=== PATIENT | female | born 1950 | race Caucasian/White ===

== ENCOUNTER 2020-10-16 12:29 | Observation (INO) ==
[2020-10-16] MEDS ORDERED: NS 0.9% 1000 ml BAG 1,000 ML IV ONE (12:40)
[2020-10-16 12:51] LABS: ABS Eosinophils 0.1 10^3/ul (0-0.6); ABS Lymphocytes 1.6 10^3/ul (1.0-4.8); ABS Monocytes 0.5 10^3/ul (0-0.8); ABS Neutrophils 3.2 10^3/ul (1.5-7.7); Eosinophil % 2.5 %; Hematocrit 41 % (35-47); Hemoglobin 13.9 g/dL (12.0-16.0); Lymphocyte % 28.3 %; Mean Corpuscular HGB Conc 34 g/dL (31-36); Mean Corpuscular Hemoglobin 30 pg (27-31); Mean Corpuscular Volume 89 fL (80-97); Mean Platelet Volume 7.8 fL (7.4-10.4); Nucleated Red Blood Cells % 0.1; Platelet Count 267 10^3/uL (150-450); Red Blood Count 4.58 10^6 /uL (3.70-4.87); Red Cell Distribution Width 13 % (10-15); White Blood Count 5.5 10^3/uL (3.5-10.8)
[2020-10-16 13:06] LABS: ALT 23 U/L (7-52); AST 22 U/L (13-39); Activated Partial Thrombo Time 30.1 seconds (26.0-38.0); Albumin/Globulin Ratio 1.6 (1-3); Alkaline Phosphatase 68 U/L (34-104); Anion Gap 6 mmol/L (2-11); BUN/Creatinine Ratio 16.5 (8-20); Blood Urea Nitrogen 14 mg/dL (6-24); CO2 Carbon Dioxide 28 mmol/L (22-32); Calcium 9.3 mg/dL (8.6-10.3); Chloride 106 mmol/L (101-111); Cholesterol 194 mg/dL; EGFR African American 80.5 (>60); EGFR Non-African American 66.5 (>60); Globulin 2.5 g/dL (2-4); Glucose 139 mg/dL (70-100); HDL Cholesterol 57.5 mg/dL; INR 1.09 (0.82-1.09); LDL Cholesterol 102 mg/dL; Potassium 3.8 mmol/L (3.5-5.0); Sodium 140 mmol/L (135-145); Total Protein 6.5 g/dL (6.4-8.9); Triglycerides 174 mg/dL
[2020-10-16] MEDS ORDERED: LORazepam 2 mg VIAL 1 ml IV PUSH ONE (15:39)
[2020-10-16] MEDS ORDERED: Lorazepam PYXIS KEY PRN (15:39)
[2020-10-16] MEDS ORDERED: Lorazepam PYXIS KEY ONE (15:41)
[2020-10-16] MEDS: Fluticasone NASAL SPRAY 50MCG 16 gm SPRAY BTL INTRANASAL SCH (20:13)
[2020-10-17 06:57] LABS: ABS Eosinophils 0.1 10^3/ul (0-0.6); ABS Lymphocytes 1.6 10^3/ul (1.0-4.8); ABS Monocytes 0.6 10^3/ul (0-0.8); ABS Neutrophils 2.4 10^3/ul (1.5-7.7); Eosinophil % 2.8 %; Hematocrit 41 % (35-47); Hemoglobin 13.8 g/dL (12.0-16.0); Lymphocyte % 33.6 %; Mean Corpuscular HGB Conc 34 g/dL (31-36); Mean Corpuscular Hemoglobin 30 pg (27-31); Mean Corpuscular Volume 89 fL (80-97); Mean Platelet Volume 7.9 fL (7.4-10.4); Nucleated Red Blood Cells % 0.1; Platelet Count 236 10^3/uL (150-450); Red Blood Count 4.62 10^6 /uL (3.70-4.87); Red Cell Distribution Width 13 % (10-15); White Blood Count 4.6 10^3/uL (3.5-10.8)
[2020-10-17 07:11] LABS: BUN/Creatinine Ratio 14.5 (8-20); EGFR African American 102.4 (>60); EGFR Non-African American 84.6 (>60); Potassium 3.9 mmol/L (3.5-5.0)
[2020-10-17] MEDS ORDERED: Cholecalciferol (VIT D3) 1,000 unit TAB PO SCH (09:00)
[2020-10-17] MEDS ORDERED: Aspirin EC 81 mg TAB.EC (enteric coated) PO SCH (09:00)
[2020-10-17] MEDS: Fluticasone NASAL SPRAY 50MCG 16 gm SPRAY BTL INTRANASAL SCH (09:11)
[2020-10-17 09:27] LABS: TSH Ultra Thyroid Stim Horm 5.58 mcIU/mL (0.34-5.60)
[2020-10-17 15:01] VITALS: BP 130/68
== END 2020-10-17 13:20 | disposition home or self-care (01) ==
LOC: ED 12:29 → MEDTELE 12:29
PROVIDERS: ADMIT Internal Medicine; ATTEND Internal Medicine